=== PATIENT | female | born 1950 | race Caucasian/White ===

== ENCOUNTER 2021-04-19 11:08 | Emergency (ER) | payer MEDICARE, OTHER ==
[~2021-04-19] VITALS: Ht 157.5 cm; Wt 74.4 kg
[~2021-04-19 11:08] MED LIST: Cleocin HCl150 MG PO; IBUP600 PO; IBUP800 PO; LEVSOD88 PO; Omeprazole20 M1; Percocet 5-3251 EACH PO
[2021-04-19] MEDS ORDERED: EUTHYROX75 MC1 PO (15:11)
== END 2021-04-19 15:21 | disposition home or self-care (01) ==
LOC: ER 11:08
DX: H53.8 Other visual disturbances (principal); K21.9 Gastro-esophageal reflux disease without esophagitis; E11.9 Type 2 diabetes mellitus without complications; Z88.0 Allergy status to penicillin; Z88.2 Allergy status to sulfonamides; Z91.013 Allergy to seafood; Z79.899 Other long term (current) drug therapy
CPT/HCPCS: 70450; 82947; 99284-25

== ENCOUNTER 2021-10-07 07:54 | Day surgery (SDC) | payer MEDICARE ==
[~2021-10-07] VITALS: Ht 157.5 cm; Wt 73.6 kg
[~2021-10-07 07:54] MED LIST changes: +EUTHYROX75 MC1 PO
[2021-10-07] MEDS ORDERED: METF500 (08:13)
== END 2021-10-07 10:15 | disposition home or self-care (01) ==
LOC: ORSCSDS 07:54
PROVIDERS: Student in an Organized Health Care Education/Training Program
PROC: 0DBM8ZX Excision of Descending Colon, Via Natural or Artificial Opening Endoscopic, Diagnostic (ICD-10-PCS; principal; 2021-10-07 09:15)
PROC: 0DBL8ZX Excision of Transverse Colon, Via Natural or Artificial Opening Endoscopic, Diagnostic (ICD-10-PCS; principal; 2021-10-07 09:15)
PROC: 0DBK8ZX Excision of Ascending Colon, Via Natural or Artificial Opening Endoscopic, Diagnostic (ICD-10-PCS; principal; 2021-10-07 09:15)
PROC: 0DBN8ZX Excision of Sigmoid Colon, Via Natural or Artificial Opening Endoscopic, Diagnostic (ICD-10-PCS; principal; 2021-10-07 09:15)
DX: Z12.11 Encounter for screening for malignant neoplasm of colon (principal); D12.5 Benign neoplasm of sigmoid colon; D12.2 Benign neoplasm of ascending colon; D12.3 Benign neoplasm of transverse colon; D12.4 Benign neoplasm of descending colon; K57.30 Diverticulosis of large intestine without perforation or abscess without bleeding; K64.1 Second degree hemorrhoids; E11.9 Type 2 diabetes mellitus without complications; E03.9 Hypothyroidism, unspecified; Z79.84 Long term (current) use of oral hypoglycemic drugs; Z79.899 Other long term (current) drug therapy
CPT/HCPCS: 82947; 88305; J2704; J7120

== ENCOUNTER → 2021-10-26 | Outpatient (CLI) | payer MEDICARE ==
[~2021-10-26] MED LIST changes: +METF500
== END | disposition home or self-care (01) ==
LOC: LAB 14:00 → LAB SHORT 14:00
DX: R32 Unspecified urinary incontinence (principal)
CPT/HCPCS: 87077; 87086; 87186

== ENCOUNTER → 2022-05-16 | Outpatient (CLI) | payer MEDICARE, OTHER | END | disposition home or self-care (01) | LOC: LAB 17:44 → LAB SHORT 17:44 | DX: N39.0 Urinary tract infection, site not specified (principal) | CPT/HCPCS: 87086 ==

== ENCOUNTER 2023-10-17 07:27 | Day surgery (SDC) | payer MEDICARE, OTHER ==
[~2023-10-17] VITALS: Ht 157.5 cm; Wt 74.3 kg
[2023-10-17] VITALS (14 sets, daily range): BP systolic 120–198; BP diastolic 62–111
[~2023-10-17 07:27] MED LIST changes: +CRANBERRY500 MG PO; +Calcium Carbon500 MG PO; +ERGO400 PO; +LOSA25 PO
--- NOTE | 2023-10-17 08:10 | NUR ---
PT STATES CONCERN OVER HAVING A "PROLAPSED VAGINA" AND REQUESTED I SHARE WITH DOC SIDE NURSES PREPROCEDURALLY. SHE ASKED THAT I DOCUMENT THAT EVERYONE IS AWARE.
--- NOTE | 2023-10-17 08:13 | NUR ---
10/17/23 0813 Rosario Wallis HISTORY, CHART, MEDICATIONS AND ALLERGIES REVIEWED BEFORE START OF PROCEDURE. PATIENT CONFIRMS NPO STATUS AND AGREES WITH SCHEDULED PROCEDURE. 3-LEAD EKG REVIEWED WITH PHYSICIAN PRIOR TO START OF PROCEDURE. MONITOR INTACT WITH CONTINUOUS PULSE OXIMETRY,CAPNOGRAPHY, 3-LEAD EKG, INTERMITTENT BP. SUPPLEMENTAL O2 TO BE TITRATED THROUGHOUT PROCEDURE TO MAINTAIN O2 SATURATION ABOVE 90%. PATIENT DETERMINED TO BE ASA APPROPRIATE FOR PROPOFOL SEDATION PRIOR TO START OF PROCEDURE BY DR. HURLEY. MALLAMPATI CLASS 3 AIRWAY: VISUALIZATION OF ONLY THE BASE OF THE UVULA.
--- NOTE | 2023-10-17 09:09 | NUR ---
Patient up to Ambulate independently. Gait steady. Discharge instructions reviewed with patient. Patient verbalizes understanding. Copy given to patient to take home. Patient States Post-Procedure ride home has been arranged with Raad Discharged via wheelchair to private car for ride home.
--- NOTE | 2023-10-17 09:43 | NUR ---
PATIENT'S RIDE HOME [facility] NOT AVAILABLE. WILL HAVE FRIEND SAJI STAFF AIR TACTICAL OFFICER.
== END 2023-10-17 09:45 | disposition home or self-care (01) ==
LOC: ORSCMMR 07:27 → ORD 08:30 → ORSCMMR 08:30
PROVIDERS: Internal Medicine Gastroenterology
PROC: 0DBL8ZX Excision of Transverse Colon, Via Natural or Artificial Opening Endoscopic, Diagnostic (ICD-10-PCS; principal; 2023-10-17 08:30)
DX: K62.5 Hemorrhage of anus and rectum (principal); Z86.010 Personal history of colon polyps; D12.3 Benign neoplasm of transverse colon; K57.30 Diverticulosis of large intestine without perforation or abscess without bleeding; K64.8 Other hemorrhoids; I10 Essential (primary) hypertension; E11.9 Type 2 diabetes mellitus without complications; E03.9 Hypothyroidism, unspecified; M81.0 Age-related osteoporosis without current pathological fracture; Z68.38 Body mass index [BMI] 38.0-38.9, adult; Z79.84 Long term (current) use of oral hypoglycemic drugs; Z79.899 Other long term (current) drug therapy
CPT/HCPCS: 82947; 88305; J2704; J7120

== ENCOUNTER → 2025-04-04 | Outpatient (CLI) | payer MEDICARE, OTHER | LOC: LAB SHORT 17:35 → LAB 17:35 | DX: N30.00 Acute cystitis without hematuria (principal) | CPT/HCPCS: 87086 ==

== ENCOUNTER 2025-05-17 12:56 | Inpatient (IN) | payer MEDICARE, OTHER ==
[~2025-05-17] VITALS: Ht 160 cm; Wt 59.2 kg
[2025-05-17 13:41] LABS: BASOPHILS ABSOLUTE AUTO 0.03 K/mm3 (0.00-0.23); BASOPHILS PERCENT AUTO 0 % (0-2); EOSINOPHILS ABSOLUTE AUTO 0.22 K/mm3 (0.00-0.68); EOSINOPHILS PERCENT AUTO 3 % (0-6); Hematocrit 41.5 % (33.0-51.0); Hemoglobin 13.9 g/dL (11.5-16.0); IMMATURE GRAN ABSOLUTE AUTO 0.02 K/mm3 (0.00-0.10); IMMATURE GRAN PERCENT AUTO 0 % (0-1); LYMPHOCYTES ABSOLUTE AUTO 1.64 K/mm3 (0.84-5.20); LYMPHOCYTES PERCENT AUTO 22 % (21-46); MONOCYTES ABSOLUTE AUTO 0.46 K/mm3 (0.16-1.47); MONOCYTES PERCENT AUTO 6 % (4-13); Mean Corpuscular HGB Conc 33.5 g/dL (31.5-36.5); Mean Corpuscular Volume 91 fL (80-100); NEUTROPHILS ABSOLUTE AUTO 5.18 K/mm3 (1.96-9.15); NEUTROPHILS PERCENT AUTO 69 % (41-73); NRBC ABSOLUTE 0.00 K/mm3 (0.00-0.02); NRBC Auto 0.0 /100 WBC (0.0-0.2); Platelet Count 206 K/mm3 (150-400); RDW Coefficient Variation 13.1 % (11.7-14.2); RDW Standard Deviation 43.7 fL (35.1-46.3)
[2025-05-17 14:05] LABS: Source, Urine Clean Catch
[2025-05-17 14:05] LABS: Alanine Aminotransfer (ALT/SGP 15.0 U/L (12-78); Albumin, Blood 3.6 g/dL (3.4-5.0); Albumin/Globulin Ratio 1.0 (0.8-1.8); Anion Gap 18.0 mmol/L (3-11); Aspartate Aminotrans (AST/SGOT 15.0 U/L (12-37); Bilirubin, Total 1.2 mg/dL (0.1-1.0); Blood Urea Nitrogen 17.0 mg/dL (8-24); CO2, Blood 14.0 mmol/L (21-32); Calcium, Blood 10.1 mg/dL (8.5-10.1); Chloride, Blood 107.0 mmol/L (98-108); Creatinine, Blood 1.04 mg/dL (0.40-1.00); Globulin, Blood 3.7 g/dL (2.2-4.0); Glucose, Blood 112.0 mg/dL (70-99); Potassium, Blood 3.6 mmol/L (3.5-5.5); Sodium, Blood 135.0 mmol/L (136-145); Total Protein, Blood 7.3 g/dL (6.4-8.2)
[2025-05-17 14:12] LABS: Bilirubin, Urine Neg (Neg); Color, Urine Yellow (P-Yellow); Glucose Qualitative, Urine Neg (Neg); Ketones, Urine 4+ (Neg); Leukocyte Esterase, Urine 2+ (Neg); Protein, Urine 2+ (Neg); Specific Gravity, Urine 1.030 (1.003-1.022); Urobilinogen, Urine 1+ (Normal)
[2025-05-17 14:38] LABS: Red Blood Cells, Urine 0-2 /hpf (0-2)
[2025-05-17] MEDS ORDERED: NS 1,000 ML BAG IR SCH (15:00)
[2025-05-17 15:29] LABS: pH Blood Venous 7.19 (7.34-7.37)
[2025-05-17] MEDS ORDERED: NS 1,000 ML IV SCH (15:50)
[2025-05-17 15:52] LABS: Thyroid Stimulating Hormone 0.051 uIU/mL (0.360-4.800)
[2025-05-17] MEDS ORDERED: DiphenhydrAMINE HCl 50 MG/ML 1ML Vial IV ONE (16:10)
[2025-05-17] MEDS ORDERED: Ciprofloxacin 400MG/D5 200ML 200 ML IV STA (18:08)
[2025-05-17] MEDS ORDERED: D5W-1/2NS 1,000 ML IV SCH ×2 (18:10→19:40)
[2025-05-17 18:42] LABS: Salicylate <1.7 mg/dL (2.8-20.0)
[2025-05-17 18:51] LABS: pH Blood Venous 7.22 (7.34-7.37)
[2025-05-17 18:52] LABS: Anion Gap 18 mmol/L (3-11); Blood Urea Nitrogen 19 mg/dL (8-24); CO2, Blood 14 mmol/L (21-32); Calcium, Blood 10.4 mg/dL (8.5-10.1); Chloride, Blood 105 mmol/L (98-108); Creatinine, Blood 1.02 mg/dL (0.40-1.00); Glucose, Blood 118 mg/dL (70-99); Potassium, Blood 3.7 mmol/L (3.5-5.5); Sodium, Blood 133 mmol/L (136-145)
[2025-05-17 18:53] LABS: Acetaminophen, Random <2.0 ug/mL (10.0-30.0)
[2025-05-17] MEDS ORDERED: Metoclopramide HCl 5MG / ML 2ML Vial IV PRN (19:00)
[2025-05-17] MEDS ORDERED: Pantoprazole Sodium 40 MG Injection IV SCH (19:00)
[2025-05-17] MEDS ORDERED: Metoclopramide HCl 5MG / ML 2ML Vial IV ONE (19:00)
[2025-05-17] MEDS ORDERED: Magnesium Sulf 2 GM/Water 50ML 50 ML IV STA (19:02)
[2025-05-17] MEDS ORDERED: Ondansetron HCl 2 MG / ML 2ML Vial IV PRN (19:05)
[2025-05-17 20:10] LABS: U Amphetamine Screen Not Detected; U Barbituate Screen Not Detected; U Benzodiazapine Screen Not Detected; U Buprenorphine Screen Not Detected; U Cannabinoids Screen Not Detected; U Cocaine Screen Not Detected; U Methadone Screen Not Detected; U Methamphetamine Screen Not Detected; U Opiates Screen Not Detected; U Oxycodone Screen Not Detected; U Phencyclidine Screen Not Detected
[2025-05-17] MEDS ORDERED: Heparin Sodium,Porcine 5,000 UNIT/0.5 ML SDV SC SCH (21:00)
[2025-05-17] MEDS ORDERED: Lactobacil 2-S.Thermo-Bifido 1 1 Cap PO SCH (21:00)
[2025-05-17 23:39] VITALS: BP 134/75
[2025-05-18] MEDS ORDERED: Insulin Human Lispro 100 Units/ML 3ML Syringe SC SCH
[2025-05-18 03:30] VITALS: BP 139/69
--- NOTE | 2025-05-18 05:06 | NUR ---
ADMIT NOTE/BELT BUILDER HELPER SUMMARY PT DIRECT ADMIT FROM ED FOR STARVATION KETOACIDOSIS/UTI. A&OX3, VSS, EXCEPT ELEVATED BP. PT DID HAVE A WITNESSED SOFT FALL IN THE ED PER ED RN. NO IMAGING REQUIRED PER ED PROVIDER. PT ORIENTED TO ROOM, CALL LIGHT, FALL AND SAFETY PRECAUTIONS. IV IN R FOREARM AND L AC REMAINS WNL. PT USES CALL LIGHT AND VOICES NEEDS APPROPRIATELY. UP TO BSC W/ 1PA AND GB. PT REMAINS ON Q6 BLOOD SUGAR CHECKS. PT HAS BEEN ASLEEP FOR THE MAJORITY OF THE SHIFT. CHEST RISE/RESPIRATIONS NOTED. BED RAILS UP X 2, BED IN LOWEST POSITION, BED WHEELS LOCKED, BED ALARM ON, PERSONAL BELONGINGS AND CALL LIGHT WITHIN REACH FOR SAFETY.
[2025-05-18 06:35] LABS: Anion Gap 15.0 mmol/L (3-11); Blood Urea Nitrogen 15.0 mg/dL (8-24); CO2, Blood 13.0 mmol/L (21-32); Calcium, Blood 9.2 mg/dL (8.5-10.1); Chloride, Blood 112.0 mmol/L (98-108); Creatinine, Blood 0.86 mg/dL (0.40-1.00); Glucose, Blood 221.0 mg/dL (70-99); Magnesium, Blood 2.0 mg/dL (1.6-2.4); Potassium, Blood 3.3 mmol/L (3.5-5.5); Sodium, Blood 137.0 mmol/L (136-145)
[2025-05-18] MEDS ORDERED: NS 250 ML IV SCH (07:55)
[2025-05-18 08:18] VITALS: BP 132/69
[2025-05-18] MEDS ORDERED: Ciprofloxacin 400MG/D5 200ML 200 ML IV SCH (09:00)
[2025-05-18 14:47] LABS: Magnesium, Blood 2.0 mg/dL (1.6-2.4)
[2025-05-18 15:00] LABS: Albumin, Blood 3.3 g/dL (3.4-5.0); Anion Gap 8 mmol/L (3-11); Blood Urea Nitrogen 14 mg/dL (8-24); CO2, Blood 19 mmol/L (21-32); Calcium, Blood 9.6 mg/dL (8.5-10.1); Chloride, Blood 115 mmol/L (98-108); Creatinine, Blood 0.89 mg/dL (0.40-1.00); Glucose, Blood 180 mg/dL (70-99); Phosphorus, Blood 0.6 mg/dL (2.5-4.9); Potassium, Blood 4.2 mmol/L (3.5-5.5); Sodium, Blood 138 mmol/L (136-145)
[2025-05-18] MEDS ORDERED: Sodium Phosphate 20 MM in Dextrose 5% 500 ML IV STA (15:19)
[2025-05-18 15:33] VITALS: BP 111/55
--- NOTE | 2025-05-18 16:37 | NUR ---
SHIFT SUMMARY: A&OX4 THROUGHOUT SHIFT. PLEASANT AND COOPERATIVE WITH CARE. PT RECIEVING ELECTROLYTE REPLACEMENT PER EMAR. PLACED ON TELEMETRY FOR MONITORING. CURRENTLY NPO STATUS WITH EXCEPTION OF WATER PER MD. UP OUT OF BED WITH A 1P ASSIST. O2 SATS >90% ON ROOM AIR. DENIES CHEST PAIN AND/OR DISCOMFORT. BREATHING EQUAL AND NONLABORED. LYING IN BED AT THIS TIME. BED LOCKED AND IN THE LOWEST POSITION.
[2025-05-18 19:00] LABS: Albumin, Blood 3.1 g/dL (3.4-5.0); Anion Gap 11 mmol/L (3-11); Blood Urea Nitrogen 14 mg/dL (8-24); CO2, Blood 17 mmol/L (21-32); Calcium, Blood 9.2 mg/dL (8.5-10.1); Chloride, Blood 115 mmol/L (98-108); Creatinine, Blood 0.89 mg/dL (0.40-1.00); Glucose, Blood 197 mg/dL (70-99); Phosphorus, Blood 1.5 mg/dL (2.5-4.9); Potassium, Blood 3.8 mmol/L (3.5-5.5); Sodium, Blood 139 mmol/L (136-145)
[2025-05-18 20:06] VITALS: BP 124/59
[2025-05-18 23:59] VITALS: BP 132/73
--- NOTE | 2025-05-19 04:42 | NUR ---
PHARMACY INTAKE COORDINATOR SUMMARY PT A&OX4, VSS. PLEASANT AND COOPERATIVE W/ CARE. PT HAS BEEN ASLEEP FOR THE MAJORITY OF THIS SHIFT. CHEST RISE/RESPIRATIONS NOTED. PT REMAINS ON TELE. SR AT 90. UP W/ 1PA AND GB MULTIPLE TIMES [place] [facility] [place] USES CALL LIGHT APPROPRIATELY AND MAKES NEEDS KNOWN WELL. REMAINS NPO EXCEPT WATER. EARLY THIS MORNING, PT WOKE UP REALLY CONFUSED. ABLE TO ANSWER QUESTIONS CORRECTLY TO MEET A&OX4 CRITERIA, BUT STARTED TALKING ABOUT HOW "THEY GOT ADAIR (RN)" AND THAT THE CARS OUTSIDE WERE DISTURBING HER SLEEP. UNCLEAR WHAT "GOT" MEANS AND CARS NOT VISIBLE FROM PT'S ROOM. PT THREATENED TO CALL PD. RN REASSURED PT ON HER SAFETY HERE. PT FELL ASLEEP AGAIN SHORTLY AFTER. BED ALARM REMAINS ON. BED RAILS UP X 2, BED IN LOWEST POSITION, BED WHEELS LOCKED, PERSONAL BELONGINGS AND CALL LIGHT WITHIN REACH FOR SAFETY.
[2025-05-19 05:21] VITALS: BP 135/67
[2025-05-19 05:34] LABS: BASOPHILS ABSOLUTE AUTO 0.03 K/mm3 (0.00-0.23); BASOPHILS PERCENT AUTO 0 % (0-2); EOSINOPHILS ABSOLUTE AUTO 0.01 K/mm3 (0.00-0.68); EOSINOPHILS PERCENT AUTO 0 % (0-6); Hematocrit 36.6 % (33.0-51.0); Hemoglobin 12.7 g/dL (11.5-16.0); IMMATURE GRAN ABSOLUTE AUTO 0.03 K/mm3 (0.00-0.10); IMMATURE GRAN PERCENT AUTO 0 % (0-1); LYMPHOCYTES ABSOLUTE AUTO 2.17 K/mm3 (0.84-5.20); LYMPHOCYTES PERCENT AUTO 18 % (21-46); MONOCYTES ABSOLUTE AUTO 0.54 K/mm3 (0.16-1.47); MONOCYTES PERCENT AUTO 5 % (4-13); Mean Corpuscular HGB Conc 34.7 g/dL (31.5-36.5); Mean Corpuscular Volume 89 fL (80-100); NEUTROPHILS ABSOLUTE AUTO 9.31 K/mm3 (1.96-9.15); NEUTROPHILS PERCENT AUTO 77 % (41-73); NRBC ABSOLUTE 0.00 K/mm3 (0.00-0.02); NRBC Auto 0.0 /100 WBC (0.0-0.2); Platelet Count 221 K/mm3 (150-400); RDW Coefficient Variation 13.5 % (11.7-14.2); RDW Standard Deviation 44.0 fL (35.1-46.3)
[2025-05-19 06:17] LABS: Alanine Aminotransfer (ALT/SGP 13.0 U/L (12-78); Albumin, Blood 3.5 g/dL (3.4-5.0); Albumin/Globulin Ratio 1.2 (0.8-1.8); Anion Gap 10.0 mmol/L (3-11); Aspartate Aminotrans (AST/SGOT 14.0 U/L (12-37); Bilirubin, Total 1.0 mg/dL (0.1-1.0); Blood Urea Nitrogen 12.0 mg/dL (8-24); CO2, Blood 19.0 mmol/L (21-32); Calcium, Blood 9.5 mg/dL (8.5-10.1); Chloride, Blood 118.0 mmol/L (98-108); Creatinine, Blood 0.99 mg/dL (0.40-1.00); Globulin, Blood 3.0 g/dL (2.2-4.0); Glucose, Blood 143.0 mg/dL (70-99); Magnesium, Blood 2.0 mg/dL (1.6-2.4); Phosphorus, Blood 2.4 mg/dL (2.5-4.9); Potassium, Blood 3.5 mmol/L (3.5-5.5); Sodium, Blood 143.0 mmol/L (136-145); Total Protein, Blood 6.5 g/dL (6.4-8.2)
[2025-05-19] MEDS ORDERED: Potassium Phosphate Dibasic 15 MM in Dextrose 5% 250 ML IV STA (07:04)
[2025-05-19 08:30] VITALS: BP 131/74
[2025-05-19] MEDS ORDERED: Sodium Phosphate Mono/Dibasic 250 MG Tab PO ONE (13:00)
[2025-05-19] MEDS ORDERED: Thiamine HCl 300 MG in NS 100 ML IV SCH (13:00)
--- NOTE | 2025-05-19 16:34 | NUR ---
NO ACUTE CHANGES PT AOX4 AND ABLE TO MAKE ALL NEEDS KNOWN. PT TREATED FOR CHRONIC R HIP PAIN PER EMAR. PT UP IN CHAIR USING LIFT PRIOR TO PHYSICAL THERAPY. PT WAS ABLE TO WORK WELL WITH PHYSICAL THERAPIST AND WAS ABLE TO DO SOME STANDING ON HIS OWN SUPPORTING WIEGHT WITH A CHAIR. PT HAS CALL LIGHT WITH REACH WILL CONTINUE TO MONITOR.
--- NOTE | 2025-05-19 16:39 | NUR ---
PT HAS BEEN AOX4 AND COOPERATIVE OF CARE. PT HAS BEEN STARTED ON CONSISTANT CARB DIET WITH NO NAUSEA. PT HAS ALSO BEEN A 1 ASSIST TO BEDSIDE COMMODE. PT IS ABLE TO MAKE NEEDS KNOWN. NO DISTRESS NOTED AND CALL LIGHT WITHIN REACH WILL CONTINUE TO MONITOR.
[2025-05-19 16:46] VITALS: BP 121/71
[2025-05-19 17:22] LABS: Albumin, Blood 3.2 g/dL (3.4-5.0); Anion Gap 11 mmol/L (3-11); Blood Urea Nitrogen 13 mg/dL (8-24); CO2, Blood 19 mmol/L (21-32); Calcium, Blood 9.2 mg/dL (8.5-10.1); Chloride, Blood 115 mmol/L (98-108); Creatinine, Blood 1.04 mg/dL (0.40-1.00); Glucose, Blood 132 mg/dL (70-99); Magnesium, Blood 2.0 mg/dL (1.6-2.4); Phosphorus, Blood 3.7 mg/dL (2.5-4.9); Potassium, Blood 3.5 mmol/L (3.5-5.5); Sodium, Blood 141 mmol/L (136-145)
[2025-05-19 19:23] VITALS: BP 123/67
[2025-05-19 23:46] VITALS: BP 134/66
[2025-05-20] VITALS (13 sets, daily range): BP systolic 98–179; BP diastolic 71–108
--- NOTE | 2025-05-20 05:43 | NUR ---
END OF SHIFT SUMMARY: A&Ox4. PLEASANT AND COOPERATIVE WITH CARE. CALLS APPROPRIATELY AND IS ABLE TO ADVOCATE NEEDS EFFECTIVELY. CONTINENT OF BOWEL AND BLADDER; LBM THIS SHIFT. AMBULATES 1PA c GB. MEDS WHOLE c FLUIDS. NO C / O OR. PAIN. TELE RHYTHM IN CHART REVIEWED AND C/W SINUS RHYTHM. SLEPT MAJORITY OF SHIFT. BED IN LOWEST POSITION, CALL LIGHT WITHIN REACH, ALL NEEDS MET. REPORT TO ONCOMING NURSE.
[2025-05-20 06:27] LABS: BASOPHILS ABSOLUTE AUTO 0.03 K/mm3 (0.00-0.23); BASOPHILS PERCENT AUTO 1 % (0-2); EOSINOPHILS ABSOLUTE AUTO 0.03 K/mm3 (0.00-0.68); EOSINOPHILS PERCENT AUTO 1 % (0-6); Hematocrit 33.7 % (33.0-51.0); Hemoglobin 11.6 g/dL (11.5-16.0); IMMATURE GRAN ABSOLUTE AUTO 0.03 K/mm3 (0.00-0.10); IMMATURE GRAN PERCENT AUTO 1 % (0-1); LYMPHOCYTES ABSOLUTE AUTO 1.87 K/mm3 (0.84-5.20); LYMPHOCYTES PERCENT AUTO 30 % (21-46); MONOCYTES ABSOLUTE AUTO 0.33 K/mm3 (0.16-1.47); MONOCYTES PERCENT AUTO 5 % (4-13); Mean Corpuscular HGB Conc 34.4 g/dL (31.5-36.5); Mean Corpuscular Volume 89 fL (80-100); NEUTROPHILS ABSOLUTE AUTO 3.89 K/mm3 (1.96-9.15); NEUTROPHILS PERCENT AUTO 63 % (41-73); NRBC ABSOLUTE 0.00 K/mm3 (0.00-0.02); NRBC Auto 0.0 /100 WBC (0.0-0.2); Platelet Count 178 K/mm3 (150-400); RDW Coefficient Variation 13.7 % (11.7-14.2); RDW Standard Deviation 44.5 fL (35.1-46.3)
[2025-05-20 06:43] LABS: Albumin, Blood 3.1 g/dL (3.4-5.0); Anion Gap 8 mmol/L (3-11); Blood Urea Nitrogen 13 mg/dL (8-24); CO2, Blood 21 mmol/L (21-32); Calcium, Blood 8.8 mg/dL (8.5-10.1); Chloride, Blood 118 mmol/L (98-108); Creatinine, Blood 1.01 mg/dL (0.40-1.00); Glucose, Blood 126 mg/dL (70-99); Magnesium, Blood 2.0 mg/dL (1.6-2.4); Phosphorus, Blood 3.6 mg/dL (2.5-4.9); Potassium, Blood 3.4 mmol/L (3.5-5.5); Sodium, Blood 144 mmol/L (136-145)
[2025-05-20] MEDS ORDERED: Insulin Human Lispro 100 Units/ML 3ML Syringe SC SCH (07:30)
--- NOTE | 2025-05-20 08:50 | NUR ---
FLUSHED 20G IV SITE RFA WITH 10NS/PATENT.
[2025-05-20] MEDS ORDERED: Benzocaine Oral Spray 0.5ML UD ONE (08:53)
--- NOTE | 2025-05-20 09:10 | NUR ---
05/20/25 0910 Norbert Noland CONFIRMED AND REVIEWED H&P, MEDCICATIONS, ALLERGIES, MEDICAL HISTORY, RESPIRATORY HISTORY, VITAL SIGNS, 3-LEAD EKG, CONSENTS, AND PHYSICIAN ORDERS. PATIENT CONFIRMS NPO STATUS AND AGREES WITH SCHEDULED PROCEDURE. MONITOR INTACT WITH CONTINUOUS PULSE OXIMETRY, CAPNOGRAPHY, 3-LEAD EKG, INTERMITTENT BP. SUPPLEMENTAL O2 TO BE TITRATED THROUGHOUT PROCEDURE TO MAINTAIN O2 SATURATION ABOVE 90%. PATIENT DETERMINED TO BE ASA APPROPRIATE FOR PROPOFOL SEDATION PRIOR TO START OF PROCEDURE BY DR. GAMBLE.
--- NOTE | 2025-05-20 12:15 | NUR ---
RN AGREES WITH DIRECTOR OF SALES SUPPORT INTERPRETATION OF NORMAL SINUS
--- NOTE | 2025-05-20 17:56 | NUR ---
SHIFT SUMMARY: PATIENT A+O X4 AND COOPERATIVE WITH CARE. EDG COMPLETED THIS SHIFT WITH NO NOTABLE ISSUES OTHER THAN INFLAMMATION AND FEW POLYPS SENT FOR BIOPSY ACCORDING TO . PATIENT ACCKNOWLEDGED UNDERSTANDING. PATIENT REMAINS SBA WHEN TRANSFERING TO BSC FOR ACTIVITY. LUNGS CLEAR THROUGHOUT WITH S1 S2 HEARD ON ASCULTATION. PATIENT ON ROOM AIR AND IS ABLE TO MAKE NEEDS KNOWN. RHYTHM NSR 90'S. PLAN FOR POSSIBLE D/C TOMORROW.
[2025-05-21 04:38] VITALS: BP 142/77
[2025-05-21 06:08] LABS: CK TOTAL 69 U/L (26-192); CK-BB 0 % (0-0); CK-MACRO TYPE I 0 % (0-0); CK-MACRO TYPE II 0 % (0-0); CK-MB 0 % (0-4); CK-MM 100 % (96-100)
[2025-05-21 06:33] LABS: BASOPHILS ABSOLUTE AUTO 0.02 K/mm3 (0.00-0.23); BASOPHILS PERCENT AUTO 0 % (0-2); EOSINOPHILS ABSOLUTE AUTO 0.06 K/mm3 (0.00-0.68); EOSINOPHILS PERCENT AUTO 1 % (0-6); Hematocrit 34.3 % (33.0-51.0); Hemoglobin 11.7 g/dL (11.5-16.0); IMMATURE GRAN ABSOLUTE AUTO 0.02 K/mm3 (0.00-0.10); IMMATURE GRAN PERCENT AUTO 0 % (0-1); LYMPHOCYTES ABSOLUTE AUTO 2.00 K/mm3 (0.84-5.20); LYMPHOCYTES PERCENT AUTO 38 % (21-46); MONOCYTES ABSOLUTE AUTO 0.27 K/mm3 (0.16-1.47); MONOCYTES PERCENT AUTO 5 % (4-13); Mean Corpuscular HGB Conc 34.1 g/dL (31.5-36.5); Mean Corpuscular Volume 91 fL (80-100); NEUTROPHILS ABSOLUTE AUTO 2.91 K/mm3 (1.96-9.15); NEUTROPHILS PERCENT AUTO 55 % (41-73); NRBC ABSOLUTE 0.00 K/mm3 (0.00-0.02); NRBC Auto 0.0 /100 WBC (0.0-0.2); Platelet Count 174 K/mm3 (150-400); RDW Coefficient Variation 13.6 % (11.7-14.2); RDW Standard Deviation 44.8 fL (35.1-46.3)
[2025-05-21 06:56] LABS: Albumin, Blood 3.0 g/dL (3.4-5.0); Anion Gap 7 mmol/L (3-11); Blood Urea Nitrogen 14 mg/dL (8-24); CO2, Blood 24 mmol/L (21-32); Calcium, Blood 9.0 mg/dL (8.5-10.1); Chloride, Blood 115 mmol/L (98-108); Creatinine, Blood 1.01 mg/dL (0.40-1.00); Glucose, Blood 120 mg/dL (70-99); Magnesium, Blood 2.1 mg/dL (1.6-2.4); Phosphorus, Blood 3.1 mg/dL (2.5-4.9); Potassium, Blood 3.7 mmol/L (3.5-5.5); Sodium, Blood 142 mmol/L (136-145)
--- NOTE | 2025-05-21 07:24 | NUR ---
ASSUMPTION OF CARE: THIS RN ASSUMED CARE OF PATIENT. AWAKE DURING SHIFT CHANGE REPORT. LYING IN BED c HOB SLIGHTLY ELEVATED. ROOM AIR. SALINE LOCKED. MOST RECENT TELE STRIP IN CHART INTERPRETED SINUS RHYTHM @ 84bpm. DR. BROCK @ BEDSIDE SHORTLY AFTER SHIFT CHANGE; DISCUSSION REGARDING DC. BED IN LOWEST POSITION. CALL LIGHT WITHIN REACH. ACUTE NEEDS MET.
[2025-05-21 07:28] VITALS: BP 129/73
[2025-05-21 11:46] VITALS: BP 114/66
[2025-05-21] MEDS ORDERED: ROSUVASTATIN CA10 MG PO (13:13)
[2025-05-21] MEDS ORDERED: METF500 PO (15:59)
[2025-05-21] MEDS ORDERED: ONDA4ODT MM (16:01)
[2025-05-21] MEDS ORDERED: PANT40 PO (16:05)
[2025-05-21 16:26] VITALS: BP 141/69
--- NOTE | 2025-05-21 17:28 | NUR ---
DISCHARGE NOTE PT DISCHARGED HOME AT APPROX 1630. PT RECEIVED BOTH VERBAL AND WRITTEN DISCHARGE INSTRUCTIONS. PT VOICED AN UNDERSTANDING AND ASKED APPROPRIATE QUESTIONS. MEDS FAXED TO [facility]. REMOVED BOTH PERIPHERAL IV'S, PT TOLERATED WELL. ALL PERSONAL BELONGINGS TAKEN BY PT.
== END 2025-05-21 16:36 | disposition home or self-care (01) | DRG 641 ==
LOC: ER 12:56 → MEDS 12:57
PROVIDERS: Emergency Medicine; Nurse Practitioner Acute Care; Student in an Organized Health Care Education/Training Program; Surgery; ADMIT Internal Medicine
PROC: 0DB68ZX Excision of Stomach, Via Natural or Artificial Opening Endoscopic, Diagnostic (ICD-10-PCS; principal; 2025-05-20 09:00)
PROC: 0DB98ZX Excision of Duodenum, Via Natural or Artificial Opening Endoscopic, Diagnostic (ICD-10-PCS; principal; 2025-05-20 09:00)
PROC: 0DB38ZX Excision of Lower Esophagus, Via Natural or Artificial Opening Endoscopic, Diagnostic (ICD-10-PCS; principal; 2025-05-20 09:00)
PROC: 0DB28ZX Excision of Middle Esophagus, Via Natural or Artificial Opening Endoscopic, Diagnostic (ICD-10-PCS; principal; 2025-05-20 09:00)
DX: E87.29 Other acidosis (principal); N39.0 Urinary tract infection, site not specified; I47.19 Other supraventricular tachycardia; T73.0XXA Starvation, initial encounter; E87.21 Acute metabolic acidosis; X58.XXXA Exposure to other specified factors, initial encounter; E83.39 Other disorders of phosphorus metabolism; K21.00 Gastro-esophageal reflux disease with esophagitis, without bleeding; E03.9 Hypothyroidism, unspecified; M81.0 Age-related osteoporosis without current pathological fracture; E11.22 Type 2 diabetes mellitus with diabetic chronic kidney disease; N18.30 Chronic kidney disease, stage 3 unspecified; E83.52 Hypercalcemia; E83.42 Hypomagnesemia; K29.80 Duodenitis without bleeding; K44.9 Diaphragmatic hernia without obstruction or gangrene; K80.20 Calculus of gallbladder without cholecystitis without obstruction; K29.70 Gastritis, unspecified, without bleeding; Z79.890 Hormone replacement therapy; Z91.148 Patient's other noncompliance with medication regimen for other reason; Z88.0 Allergy status to penicillin; Z88.2 Allergy status to sulfonamides; Z91.013 Allergy to seafood; Z88.8 Allergy status to other drugs, medicaments and biological substances; Z79.899 Other long term (current) drug therapy; Z79.84 Long term (current) use of oral hypoglycemic drugs; Z90.710 Acquired absence of both cervix and uterus; Z90.49 Acquired absence of other specified parts of digestive tract; Z90.89 Acquired absence of other organs; Z90.79 Acquired absence of other genital organ(s)
CPT/HCPCS: 36415; 70450; 71260; 74177; 74220; 80048; 80053; 80069; 80320; 81001; 82010; 82550; 82552; 82803; 82947; 83605; 83735; 84100; 84439; 84443; 85025; 87086; 88305; 88341; 88342; 92610; 93005; 93010; 96361; 96365-59; 96366; 96367; 96367-59; 96368; 96372; 96375; 96376; 99285-25; A9270; G0378; G0480; J0744; J1200; J1644; J2470; J2704; J2765; J2919; J3411; J3475; J3480; J7030; J7042; J7050; J7060; J7120; Q9967